=== PATIENT | female | born 1960 | race Caucasian/White ===

== ENCOUNTER → 2024-12-31 | Outpatient (CLI) | payer OTHER, MEDICAID, SELFPAY ==
--- NOTE | 2024-12-31 | CER_PTH ---
PATIENT: DARIANA MILES LOC: [facility] #:[id number] AGE/SX: 64/F ROOM: RE12/31/[address]: Dr. Adriana Hodge DO : 1960 BED: DIS: 12/31/2024 SPEC #: [id number] RECD: 12/31/24 16:36 STATUS: PATTY GILKyrie #: [id number] GISELA: 12/31/24 00:[address]: Adriana Hodge DEPT: SURGICAL PATHOLOGY RECD BY: Jeremi Castillo Tissues: A - Endocervical B - Uterine cervix, NOS Procedures: Surgery Specimen Level IV HEADER OPERATION: Colposcopy PRE-OP DIAGNOSIS: LGSIL, HPV+ TISSUE SUBMITTED: A- ECC, B- 11o'clock MICROSCOPIC DIAGNOSIS A. Endocervix, curettage: * Scant fragments of superficial squamous epithelium, negative for intraepithelial lesion B. Cervix, 11:00, biopsy: * Squamous epithelium, negative for intraepithelial lesion MICROSCOPIC DESCRIPTION Slides are reviewed. GROSS DESCRIPTION Received in 2 formalin containers labeled with the patient's name and date of . Designated as: A. "ECC" is a brush with adherent, cloudy mucoid material in addition to a free-floating strands of apparent hair. The specimen is entirely submitted preparation, in 1 cassette. B. "11 o'clock" is a 0.5 x 0.3 x 0.2 cm milan and erythematous tissue fragment. Entirely submitted in 1 cassette. PA 01/03/2025 CPT:32062u0
== END | disposition home or self-care (01) ==
LOC: LABSPEC 16:14
PROVIDERS: Visit Provider Obstetrics & Gynecology
DX: R87.612 Low grade squamous intraepithelial lesion on cytologic smear of cervix (LGSIL) (principal)
CPT/HCPCS: 88305